=== PATIENT | male | born 1960 | race Caucasian/White ===

== ENCOUNTER 2023-09-12 01:57 | Emergency (ER) | payer MEDICAID, OTHER ==
[~2023-09-12] VITALS: Ht 172.7 cm; Wt 63.5 kg
[2023-09-12 01:59] VITALS: BP 159/100; TEMP 98.6
[2023-09-12 02:13] VITALS: O2SAT 97
[2023-09-12] MEDS ORDERED: KETO10TA2 PO (02:14)
[2023-09-12] MEDS ORDERED: MECL-159 PO (02:14)
[2023-09-12] MEDS ORDERED: MECLIZINE HCL 25 MG TABLET ONE (02:26)
[2023-09-12] MEDS ORDERED: KETOROLAC TROMETHAMINE INJ 30 MG/ML VIAL ONE (02:26)
[2023-09-12] MEDS: MECLIZINE HCL 25 MG TABLET PO ONE (02:32)
[2023-09-12] MEDS: KETOROLAC TROMETHAMINE INJ 60 MG/2 ML VIAL IM ONE (02:32)
== END 2023-09-12 02:13 | disposition home or self-care (01) ==
LOC: ER 01:59
DX: R42 Dizziness and giddiness (principal); G89.29 Other chronic pain; M54.9 Dorsalgia, unspecified; I10 Essential (primary) hypertension
CPT/HCPCS: 99283; 96372; J8597; J1885

== ENCOUNTER 2024-07-28 00:57 | Inpatient (IN) | payer MEDICAID, OTHER ==
[~2024-07-28] VITALS: Ht 175.3 cm; Wt 56.2 kg
[~2024-07-28 00:57] MED LIST: KETO10TA2 PO; MECL-159 PO
[2024-07-28 02:12] LABS: BASOPHILS # (AUTO) 0.1 K/uL (0.0-0.2); BASOPHILS % (AUTO) 0.8 % (0.0-2.0); EOSINOPHILS % (AUTO) 0.1 % (0.0-6.0); LYMPHOCYTES # (AUTO) 2.9 K/uL (0.8-4.8); LYMPHOCYTES % (AUTO) 34.5 % (20.0-44.0); MEAN CORPUSCULAR HEMOGLOBIN 23 PG (26.0-33.0); MEAN CORPUSCULAR HGB CONC 31 g/dl (31.0-36.0); MEAN CORPUSCULAR VOLUME 76 fL (80-96); MONOCYTES # (AUTO) 0.7 K/uL (0.1-1.30); MONOCYTES % (AUTO) 8.1 % (2.0-12.0); NEUTROPHILS # (AUTO) 4.7 K/uL (1.8-8.9); NEUTROPHILS % (AUTO) 56.5 % (43.0-81.0); PLATELET COUNT (AUTO) 232 K/uL (150-450); RED BLOOD CELL COUNT(AUTO) 2.53 MIL/uL (4.5-6.0); WHITE BLOOD COUNT (AUTO) 8.3 K/uL (4.3-11.0)
[2024-07-28 02:14] LABS: HEMATOCRIT 19 % (39-51); HEMOGLOBIN 5.9 g/dL (13.5-17.5)
[2024-07-28] MEDS ORDERED: PANTOPRAZOLE 40 MG VIAL ONE (02:27)
[2024-07-28] MEDS: PANTOPRAZOLE 40 MG VIAL IV ONE (02:31)
[2024-07-28 02:32] LABS: SERUM AMMONIA 4 umol/L (11-32)
[2024-07-28 02:33] LABS: ALANINE AMINOTRANSFERASE 28 U/L (12-78); ALBUMIN 3.4 g/dL (3.4-5.0); ALCOHOL, BLOOD 121 mg/dL (0-10); ALKALINE PHOSPHATASE 68 U/L (46-116); ASPARTATE AMINOTRANSFERASE 77 U/L (15-37); BILIRUBIN,TOTAL 0.6 mg/dL (0.2-1.0); CALCIUM, SERUM 9.1 mg/dL (8.5-10.1); CARBON DIOXIDE 26 mmol/L (21-32); CHLORIDE 100 mmol/L (98-107); GLUCOSE 100 mg/dL (74-106); NT-PRO BNP 12046 pg/mL (0-125); POTASSIUM 3.2 mmol/L (3.5-5.1); SODIUM SERUM 143 mmol/L (136-145); TOTAL PROTEIN, SERUM 7.3 g/dL (6.4-8.2); UREA NITROGEN, BLOOD 22 mg/dL (7-18)
[2024-07-28 02:34] LABS: ACETAMINOPHEN <10 ug/ml (10-30); SALICYLATE 2.4 mg/dL (2.8-20.0)
[2024-07-28 03:16] LABS: ANISOCYTOSIS 1+; HYPOCHROMASIA 1+; LYMPHOCYTES % (MANUAL) 27 % (16-48); MONOCYTES % (MANUAL) 7 % (0-11.0); NEUTROPHILS % (MANUAL) 66 (42-76); PLATELET ESTIMATE ADEQUATE
[2024-07-28 03:38] LABS: APPEARANCE,URINE SLIGHTLY CLOUDY (CLEAR); BILIRUBIN,URINE NEGATIVE (NEGATIVE); BLOOD, URINE 3+ Ery/uL (NEGATIVE); COLOR,URINE YELLOW (YELLOW); KETONES,URINE 1+ mg/dL (NEGATIVE); LEUKOCYTE ESTERASE ,URINE NEGATIVE (NEGATIVE); NITRITE, URINE NEGATIVE (NEGATIVE); PROTEIN,URINE 1+ mg/dl (NEGATIVE); UGLUCOSE NEGATIVE (NEGATIVE); UROBILINOGEN,URINE 0.2 EU/dL (0.2)
[2024-07-28 03:46] LABS: AMPHETAMINE, URINE NEGATIVE (NEGATIVE); BARBITURATE, URINE NEGATIVE (NEGATIVE); BENZODIAZEPINE, URINE NEGATIVE (NEGATIVE); COCCAINE, URINE NEGATIVE (NEGATIVE); OPIATE, URINE NEGATIVE (NEGATIVE); PHENCYCLIDINE SCREEN,URINE NEGATIVE (NEGATIVE)
[2024-07-28 03:47] LABS: CANNABINOID, URINE POSITIVE (NEGATIVE)
[2024-07-28 03:53] LABS: RBC,URINE 81-100 /HPF (0-2)
[2024-07-28 03:55] LABS: ADD URINE CULTURE YES; BACTERIA,URINE Few /HPF (None Seen); SQUAMOUS EPITHELIAL CELL,UR Moderate /HPF (None Seen)
[2024-07-28] MEDS ORDERED: ACETAMINOPHEN 325 MG TABLET PO PRN ×2 (05:00→11:00)
[2024-07-28] MEDS ORDERED: ONDANSETRON HCL/PF 4 MG/2 ML VIAL IVP PRN (05:00)
[2024-07-28] MEDS ORDERED: MAG HYDROX/AL HYDROX/SIMETH 30 ML UDC PO PRN (05:00)
[2024-07-28] MEDS ORDERED: MAGNESIUM HYDROXIDE 30 ML UDC PO PRN (05:00)
[2024-07-28] MEDS ORDERED: CEFTRIAXONE 1GM BAG (ER ONLY) 50 ML IV ONE (05:10)
[2024-07-28] MEDS: CEFTRIAXONE 1 G in IV D5W 50 ML IV ONE (05:16)
[2024-07-28] MEDS ORDERED: POTASSIUM CL. PREMIX PERIPHER. 50 ML IV SCH (05:30)
[2024-07-28 05:55] LABS: THYROID STIMULATING HORMONE 0.46 uIU/mL (0.358-3.74)
[2024-07-28 08:20] VITALS: BP 102/68; TEMP 98.4; O2SAT 93
[2024-07-28] MEDS ORDERED: PANT40TA49 PO (08:48)
[2024-07-28] MEDS ORDERED: ASPI-1169 PO (08:48)
[2024-07-28] MEDS ORDERED: SERT25TA5 PO (08:48)
[2024-07-28] MEDS ORDERED: POTA-88 PO (08:48)
[2024-07-28] MEDS ORDERED: GABA300C PO (08:48)
[2024-07-28] MEDS ORDERED: ATOR40TA PO (08:48)
[2024-07-28] MEDS ORDERED: FERR325T30 PO (08:48)
[2024-07-28] MEDS ORDERED: ACET325T53 PO (08:48)
[2024-07-28] MEDS ORDERED: FURO40TA5 PO (08:48)
[2024-07-28] MEDS ORDERED: CLOP75TA15 PO (08:48)
[2024-07-28] MEDS ORDERED: CLON0.1T PO (08:48)
[2024-07-28] MEDS ORDERED: MULT-594 PO (08:48)
[2024-07-28] MEDS ORDERED: CHOL100043 PO (08:48)
[2024-07-28] MEDS ORDERED: CLONIDINE HCL 0.1 MG TABLET PO PRN (11:00)
[2024-07-28 12:00] VITALS: BP 103/78; TEMP 99; O2SAT 93
[2024-07-28] MEDS: GABAPENTIN 300 MG CAPSULE PO SCH (12:07)
[2024-07-28 16:00] VITALS: BP 95/63; TEMP 97.6; O2SAT 93
[2024-07-28] MEDS: PANTOPRAZOLE 40 MG VIAL IV SCH (16:33)
[2024-07-28 20:00] VITALS: BP 102/64; TEMP 99.1; O2SAT 95
[2024-07-28] MEDS: ATORVASTATIN 40 MG TABLET PO SCH (21:43)
[2024-07-29] VITALS (12 sets, daily range): BP systolic 90–106; BP diastolic 60–78; TEMP 98.1–98.9; O2SAT 90–98
[2024-07-29] MEDS ORDERED: CEFTRIAXONE 1 G in IV D5W 50 ML IV SCH (05:00)
[2024-07-29 06:53] LABS: CREATININE 1.2 mg/dL (0.6-1.3); MAGNESIUM 1.8 mg/dL (1.8-2.4); PHOSPHORUS 1.9 mg/dL (2.5-4.9)
[2024-07-29 08:02] LABS: BASOPHILS % (AUTO) 0.5 % (0.0-2.0); HEMATOCRIT 21 % (39-51); LYMPHOCYTES % (AUTO) 19.4 % (20.0-44.0); MEAN CORPUSCULAR HEMOGLOBIN 24 PG (26.0-33.0); MEAN CORPUSCULAR HGB CONC 32 g/dl (31.0-36.0); MEAN CORPUSCULAR VOLUME 75 fL (80-96); MONOCYTES # (AUTO) 0.5 K/uL (0.1-1.30); MONOCYTES % (AUTO) 5.3 % (2.0-12.0); NEUTROPHILS # (AUTO) 7.5 K/uL (1.8-8.9); NEUTROPHILS % (AUTO) 74.8 % (43.0-81.0); PLATELET COUNT (AUTO) 176 K/uL (150-450); RED BLOOD CELL COUNT(AUTO) 2.79 MIL/uL (4.5-6.0); RED CELL DISTRIBUTION WIDTH 19.1 % (11.5-15.0); WHITE BLOOD COUNT (AUTO) 10.1 K/uL (4.3-11.0)
[2024-07-29 08:19] LABS: HEMOGLOBIN 6.7 g/dL (13.5-17.5)
[2024-07-29] MEDS: FERROUS SULFATE (325 MG) 325 MG/TAB TABLET PO SCH (08:56)
[2024-07-29] MEDS: SERTRALINE HCL 25 MG TABLET PO SCH (08:57)
[2024-07-29] MEDS ORDERED: PANTOPRAZOLE 40 MG TABLET.DR PO SCH (09:00)
[2024-07-29] MEDS: CLOPIDOGREL BISULFATE 75 MG TABLET PO SCH (09:00)
[2024-07-29] MEDS: POTASSIUM CHLORIDE 20 MEQ TAB.PRT.SR PO SCH (10:05)
[2024-07-29 11:37] LABS: ANISOCYTOSIS 1+; HYPOCHROMASIA 1+; LYMPHOCYTES % (MANUAL) 12 % (16-48); MONOCYTES % (MANUAL) 1 % (0-11.0); NEUTROPHILS % (MANUAL) 87 (42-76); PLATELET ESTIMATE ADEQUATE
[2024-07-29 15:02] LABS: OCCULT BLOOD STOOL POSITIVE (NEGATIVE)
[2024-07-29] MEDS: K PHOS NEUTRAL 250 MG TABLET PO ONE (15:42)
[2024-07-29] MEDS: IV D5/0.45 NACL 1,000 ML IV PRN (18:22)
[2024-07-30] VITALS: BP 125/85; TEMP 98.2; O2SAT 99
[2024-07-30 04:00] VITALS: BP 102/82; TEMP 98.2; O2SAT 96
[2024-07-30 06:43] LABS: BASOPHILS % (AUTO) 0.4 % (0.0-2.0); EOSINOPHILS # (AUTO) 0.1 K/uL (0.0-0.7); EOSINOPHILS % (AUTO) 1.6 % (0.0-6.0); HEMATOCRIT 23 % (39-51); HEMOGLOBIN 7.8 g/dL (13.5-17.5); LYMPHOCYTES # (AUTO) 2.5 K/uL (0.8-4.8); LYMPHOCYTES % (AUTO) 29.7 % (20.0-44.0); MEAN CORPUSCULAR HEMOGLOBIN 27 PG (26.0-33.0); MEAN CORPUSCULAR HGB CONC 34 g/dl (31.0-36.0); MEAN CORPUSCULAR VOLUME 78 fL (80-96); MONOCYTES # (AUTO) 0.4 K/uL (0.1-1.30); NEUTROPHILS # (AUTO) 5.3 K/uL (1.8-8.9); NEUTROPHILS % (AUTO) 63.3 % (43.0-81.0); PLATELET COUNT (AUTO) 138 K/uL (150-450); RED BLOOD CELL COUNT(AUTO) 2.94 MIL/uL (4.5-6.0); RED CELL DISTRIBUTION WIDTH 20.1 % (11.5-15.0); WHITE BLOOD COUNT (AUTO) 8.4 K/uL (4.3-11.0)
[2024-07-30 07:05] LABS: CALCIUM, SERUM 8.2 mg/dL (8.5-10.1); CREATININE 0.9 mg/dL (0.6-1.3); POTASSIUM 3.3 mmol/L (3.5-5.1)
[2024-07-30 08:10] VITALS: BP 97/75; TEMP 98.8; O2SAT 98
[2024-07-30] MEDS: POTASSIUM CHLORIDE 20 MEQ TAB.PRT.SR PO SCH (10:30)
[2024-07-30 16:15] VITALS: BP 119/60; TEMP 98.6; O2SAT 100
[2024-07-30] MEDS ORDERED: CHLORDIAZEPOXIDE HCL 25 MG CAPSULE PO PRN (17:00)
[2024-07-30 20:00] VITALS: BP 94/58; TEMP 99.3; O2SAT 95
[2024-07-31 04:00] VITALS: BP 96/73; TEMP 99; O2SAT 99
[2024-07-31 06:37] LABS: CALCIUM, SERUM 8.3 mg/dL (8.5-10.1); CREATININE 0.8 mg/dL (0.6-1.3); POTASSIUM 3.2 mmol/L (3.5-5.1)
[2024-07-31 06:41] LABS: BASOPHILS % (AUTO) 0.4 % (0.0-2.0); EOSINOPHILS # (AUTO) 0.3 K/uL (0.0-0.7); EOSINOPHILS % (AUTO) 3.5 % (0.0-6.0); HEMATOCRIT 27 % (39-51); HEMOGLOBIN 8.4 g/dL (13.5-17.5); LYMPHOCYTES # (AUTO) 1.9 K/uL (0.8-4.8); LYMPHOCYTES % (AUTO) 26.5 % (20.0-44.0); MEAN CORPUSCULAR HEMOGLOBIN 25 PG (26.0-33.0); MEAN CORPUSCULAR HGB CONC 32 g/dl (31.0-36.0); MEAN CORPUSCULAR VOLUME 79 fL (80-96); MONOCYTES # (AUTO) 0.5 K/uL (0.1-1.30); MONOCYTES % (AUTO) 6.3 % (2.0-12.0); NEUTROPHILS # (AUTO) 4.6 K/uL (1.8-8.9); NEUTROPHILS % (AUTO) 63.3 % (43.0-81.0); PLATELET COUNT (AUTO) 148 K/uL (150-450); RED BLOOD CELL COUNT(AUTO) 3.38 MIL/uL (4.5-6.0); RED CELL DISTRIBUTION WIDTH 20.3 % (11.5-15.0); WHITE BLOOD COUNT (AUTO) 7.3 K/uL (4.3-11.0)
[2024-07-31 08:00] VITALS: BP 96/64; TEMP 98.4; O2SAT 92
[2024-07-31] MEDS: THIAMINE HCL 100 MG TABLET PO SCH (09:06)
[2024-07-31] MEDS: MULTIVITAMINS,THERAGRAN 1 UDTAB TABLET PO SCH (09:06)
[2024-07-31] MEDS: POTASSIUM CHLORIDE 20 MEQ POWDER PACKET PO SCH (09:44)
[2024-07-31 12:00] VITALS: BP 94/78; TEMP 98.6; O2SAT 95
[2024-07-31 16:00] VITALS: BP 95/69; TEMP 98.4; O2SAT 95
[2024-07-31 20:00] VITALS: BP 99/56; TEMP 98.1; O2SAT 95
[2024-08-01 04:00] VITALS: BP 90/72; TEMP 98.1; O2SAT 98
[2024-08-01 08:00] VITALS: BP 95/66; TEMP 98.4; O2SAT 97
[2024-08-01] MEDS ORDERED: PANTOPRAZOLE 40 MG TABLET.DR PO SCH (21:00)
== END 2024-08-01 15:30 | DRG 253 ==
LOC: ER 01:00 → TELE IN 05:19 → TELE1 05:51 → TELE-TD 07:32 → TELE1 10:37 → MEDSG1 07-30 09:30
PROVIDERS: ADMIT Internal Medicine; ATTEND Internal Medicine
PROC: 30233N1 Transfusion of Nonautologous Red Blood Cells into Peripheral Vein, Percutaneous Approach (ICD-10-PCS; principal; 2024-07-28)
DX: K92.2 Gastrointestinal hemorrhage, unspecified (principal); I21.A1 Myocardial infarction type 2; D69.6 Thrombocytopenia, unspecified; E83.39 Other disorders of phosphorus metabolism; F29 Unspecified psychosis not due to a substance or known physiological condition; D64.9 Anemia, unspecified; I69.351 Hemiplegia and hemiparesis following cerebral infarction affecting right dominant side; I10 Essential (primary) hypertension; E87.6 Hypokalemia; K40.90 Unilateral inguinal hernia, without obstruction or gangrene, not specified as recurrent; F33.9 Major depressive disorder, recurrent, unspecified; R19.5 Other fecal abnormalities; Y90.6 Blood alcohol level of 120-199 mg/100 ml; F10.229 Alcohol dependence with intoxication, unspecified; K44.9 Diaphragmatic hernia without obstruction or gangrene; R74.8 Abnormal levels of other serum enzymes; Z53.20 Procedure and treatment not carried out because of patient's decision for unspecified reasons
CPT/HCPCS: 36415; 70450-TC; 71045-TC; 80048-TC; 80053-TC; 80061-TC; 81001; 82140-TC; 82272-TC; 83735-TC; 83880; 84100-TC; 84443-TC; 84484-TC; 85025-TC; 85027-TC; 86850-TC; 87040-TC; 87081-TC; 87086-TC; 93307-TC; 97112-TC; 97530-TC; A4223; G0378; G0480; J0696; J2470; J3490; J7040; J7050; J7060; P9016